=== PATIENT | female | born 1950 | race Hispanic/Latino ===

== ENCOUNTER 2018-03-13 11:59 | Emergency (ER) | payer BC ==
[2018-03-13] MEDS ORDERED: NORCO 5/325 PO ONE (13:32)
[2018-03-13] MEDS ORDERED: MOTRIN PO ONE (13:32)
--- NOTE | 2018-03-13 13:34 | Emergency Department Report ---
Blank Doc - Documentation Documentation: Patient is a 67-year-old female who states that she has right upper quadrant pain. Patient states that she initially believed the pain was secondary to coughing several months ago where she coughed so much that her size started hurting. Patient states this is moved from the ribs down to the right upper quadrant. Patient denies any nausea vomiting or diarrhea. Patient has normal bowel movements. Patient does not have a gallbladder this was removed and 80s. The patient does have a history of Meckel's diverticulum that she did receive surgery for in 1980. Patient states there is some difficulty when she takes a deep breath. Patient has some tenderness in the right upper quadrant and rig lower ribs. This is reproducible. Patient lungs are clear to auscultation abdomen soft but mildly distended. X-ray of the chest and abdomen will be done to rule ou things such as pneumonia or focal ileus. Patient also have a d-dimer to screen the patient for pulmonary embolus. Patient be reassessed. Beatrzi Pereyra
--- NOTE | 2018-03-13 15:12 | XRay Report ---
Abdominal series: Cough, right-sided abdominal pain. AP view of the chest is unremarkable. Images of the abdomen demonstrate cholecystectomy clips. Scattered dilated small bowel loops are noted however no air-fluid levels are seen in the upright position. No free air. No abdominal mass. Popcorn calcification just above the urinary bladder consistent with uterus location. Impressions: 1. Nonspecific mild increase gas pattern in the small bowel. Doubt obstruction in the absence of air-fluid. 2. Normal chest.
--- NOTE | 2018-03-13 15:24 | Emergency Department Report ---
ED Abdominal Pain HPI - General Chief Complaint: Abdominal Pain Stated Complaint: ABD PAIN Time Seen by Provider: 03/13/18 13:23 Source: patient Mode of arrival: Ambulatory Limitations: No Limitations - History of Present Illness Initial Comments: Patient is a 67-year-old female who presents with right side abdominal for 3 months. Past medical history of Meckel's diverticulum and gallbladder removed. Patient reports being diagnosed with bronchitis in December and coughed so much she felt that she pulled a muscle. Patient states that originally the pain is in right upper quadrant but now has spread to the entire right side of abdomen. Patient reports pain is interrupting her sleep. Pain moved from the ribs down to the right lower quadrant. Denies nausea or vomiting , frequency, urgency, fever, and chest pain. MD Complaint: abdominal pain Onset/Timin -: month(s) Location: RUQ, RLQ Radiation: none Migration to: no migration Severity: moderate Severity scale (0 -10): 6 Quality: aching Consistency: intermittent Improves With: nothing Worsens With: movement Associated Symptoms: denies other symptoms Treatments Prior to Arrival: NSAIDs - Related Data Previous Rx's Medication Instructions Recorded Last Taken Type Oxycodone HCl/Acetaminophen 1 each PO Q6HR PRN #30 tablet 03/08/15 Unknown Rx [Percocet 10-325 mg] Ibuprofen [Motrin 800 MG tab] 800 mg PO Q8HR PRN #20 tablet 03/13/18 Unknown Rx Tizanidine HCl [Zanaflex] 2 mg PO TID PRN #15 capsule 03/13/18 Unknown Rx Allergies Allergy/AdvReac Type Severity Reaction Status Date / Time No Known Allergies Allergy Unverified 03/08/15 13:43 ED Review of Systems ROS: Stated complaint: ABD PAIN Other details as noted in HPI Constitutional: denies: chills, fever Respiratory: denies: cough, shortness of breath, wheezing Cardiovascular: denies: chest pain, palpitations Gastrointestinal: abdominal pain (right-sided abdominal pain). denies: nausea, vomiting, diarrhea Skin: denies: rash, lesions Neurological: denies: headache, weakness, paresthesias Psychiatric: denies: anxiety, depression ED Past Medical Hx - Past Medical History Previous Medical History?: Yes Hx Hypertension: Yes Additional medical history: Hypercholesterolemia - Surgical History Past Surgical History?: No - Social History Smoking Status: Current Every Day Smoker Substance Use Type: Alcohol, Prescribed - Medications Home Medications: Home Medications Medication Instructions Recorded Confirmed Last Taken Type Oxycodone HCl/Acetaminophen 1 each PO Q6HR PRN #30 tablet 03/08/15 Unknown Rx [Percocet 10-325 mg] Ibuprofen [Motrin 800 MG tab] 800 mg PO Q8HR PRN #20 tablet 03/13/18 Unknown Rx Tizanidine HCl [Zanaflex] 2 mg PO TID PRN #15 capsule 03/13/18 Unknown Rx ED Physical Exam - General Limitations: No Limitations General appearance: alert, in no apparent distress, obese - Respiratory Respiratory exam: Present: normal lung sounds bilaterally. Absent: respiratory distress - Cardiovascular Cardiovascular Exam: Present: regular rate, normal rhythm. Absent: systolic murmur, diastolic murmur, rubs, gallop - GI/Abdominal GI/Abdominal exam: Present: soft, tenderness (right upper quadrant and right lower quadrant tenderness), normal bowel sounds. Absent: organomegaly, mass - Neurological Exam Neurological exam: Present: alert, oriented X3 - Psychiatric Psychiatric exam: Present: normal affect, normal mood - Skin Skin exam: Present: warm, dry, intact, normal color. Absent: rash ED Course Vital Signs 03/13/18 03/13/18 03/13/18 12:05 13:37 16:33 Temperature 97.7 F Pulse Rate 103 H 94 H Respiratory 18 20 16 Rate Blood Pressure 158/88 Blood Pressure 153/75 [Right] O2 Sat by Pulse 97 97 Oximetry ED Medical Decision Making - Radiology Data Radiology results: report reviewed Abdominal series: Cough, right-sided abdominal pain. AP view of the chest is unremarkable. Images of the abdomen demonstrate cholecystectomy clips. Scattered dilated small bowel loops are noted however no air-fluid levels are seen in the upright position. No free air. No abdominal mass. Popcorn calcification just above the urinary bladder consistent with uterus location. Impressions: 1. Nonspecific mild increase gas pattern in the small bowel. Doubt obstruction in the absence of air-fluid. 2. Normal chest. - Medical Decision Making This is a 67 y.o. female presents with right-sided abdominal pain for 4 months. Patient was examined by me and Dr. Parra. Vitals are stable and patient is in no acute distress. Patient given [place] and ibuprofen once an ER for pain. Obtained d-dimer and x-ray of abdomen and chest. X-ray dictated by resident radiologist, 1. Nonspecific mild increase gas pattern in the small bowel. Doubt obstruction in the absence of air-fluid. 2. Normal chest. D-dimer negative. Physical findings susceptible of muscle strain. Patient informed of results. Start ibuprofen and cyclobenzaprine for pain. Plan discussed with patient to discharge home and treat outpatient. She agrees with ER plan. Patient discharged home in stable condition. Follow up with PCP in 2-3 days. Critical care attestation.: If time is entered above; I have spent that time in minutes in the direct care of this critically ill patient, excluding procedure time. ED Disposition Clinical Impression: Right-sided abdominal pain of unknown cause Abdominal muscle strain Qualifiers: Encounter type: initial encounter Qualified Code(s): S39.011A - Strain of muscle, fascia and tendon of abdomen, initial encounter Disposition: TO HOME OR SELFCARE Is pt being admited?: No Does the pt Need Aspirin: No Condition: Stable Instructions: Muscle Strain (ED), Abdominal Pain (ED) Additional Instructions: Rest Use ice or heat on affected area for 20 minutes and off for 2 hours. Take pain medication as needed for pain. Don't drive or operate heavy machinery while taking muscle relaxers because they may cause drowsiness. Follow up with Primary Care Provider in 2-3 days. Prescriptions: Ibuprofen [Motrin 800 MG tab] 800 mg PO Q8HR PRN #20 tablet PRN Reason: Pain , Severe (7-10) Tizanidine HCl [Zanaflex] 2 mg PO TID PRN #15 capsule PRN Reason: Muscle Spasm Referrals: [facility] [Provider Group] - 3-5 Days [facility], P [Other] - 3-5 Days Forms: Work/School Release Form(ED) Time of Disposition: 16:18 Print Language: SPANISH
[2018-03-13 16:34] VITALS: BP 153/75
== END 2018-03-13 16:34 | disposition home or self-care (01) ==
LOC: ED 11:59
DX: S39.011A Strain of muscle, fascia and tendon of abdomen, initial encounter (principal); R10.11 Right upper quadrant pain; R10.31 Right lower quadrant pain; I10 Essential (primary) hypertension; F17.200 Nicotine dependence, unspecified, uncomplicated; E78.00 Pure hypercholesterolemia, unspecified; X58.XXXA Exposure to other specified factors, initial encounter; Y93.89 Activity, other specified; Y99.8 Other external cause status; Y92.89 Other specified places as the place of occurrence of the external cause
CPT/HCPCS: 36415; 74022; 85379